=== PATIENT | male | born 1960 | race Caucasian/White ===

== ENCOUNTER 2018-06-04 13:21 | Emergency (ER) | payer OTHER, SELFPAY ==
[2018-06-04 13:30] VITALS: BP 139/90; PULSE 50; RESP 18; TEMP 36.3; O2SAT 99
--- NOTE | 2018-06-04 13:50 | ED.ABDPAIN ---
HPI - Abdominal Pain <[facility] - Last Filed: 06/04/18 16:59> General Chief Complaint: Abdominal Pain Stated Complaint: abdominal/lower back pain Time Seen by Provider: 06/04/18 13:49 Source: patient and family Mode of arrival: ambulatory Limitations: no limitations History of Present Illness HPI narrative: Patient presents with chief complaint of left lower quadrant pain and back pain that started last night. The pain gets worse sometimes. Pain was 8 to 9/[address] in here. He denies any fevers but complains of slight chills. He states it started last night. Denies any nausea, vomiting, diarrhea, constipation. The pain went away last night but returned after having a bowel movement. He states he has had GI issues in the past but nothing like this before. He denies any chest pain, shortness of breath, congestion, sore throat. He denies any urinary symptoms and denies dysuria, blood in his urine, urgency or frequency. Related Data Previous Rx's Medication Instructions Recorded oxycodone-acetaminophen [Percocet] 1 tab PO Q4-6H PRN #14 tab 06/04/18 tamsulosin [Flomax] 0.4 mg PO DAILY #7 cap 06/04/18 Allergies Allergy/AdvReac Type Severity Reaction Status Date / Time No Known Drug Allergies Allergy Verified 06/04/18 13:42 Review of Systems <Paulina Watkins [facility] - Last Filed: 06/04/18 16:59> Review of Systems GENERAL: Denies chills, fatigue, malaise, fever, sweats. HEENT: Denies sinus pain, ear pain, sore throat, difficulty swallowing, dizziness. RESPIRATORY: Denies dyspnea, cough, wheezing, hemoptysis, sputum. CARDIOVASCULAR: Denies chest pain, palpitations, orthopnea, edema, GASTROINTESTINAL: See HPI : See HPI. MUSCULOSKELETAL: denies weakness, joint pain, or bony pain SKIN: Denies rash, skin lesions, or other NEUROLOGIC: Denies weakness, headache, numbness, change in speech, confusion, seizures, incoordination. PSYCHIATRIC: No concerning psychosocial issues. 12 point review of systems is negative except for those stated above Exam <Paulina Watkins [facility] - Last Filed: 06/04/18 16:59> Narrative Exam Narrative: GENERAL: This is a well-nourished, well-developed patient, in no acute distress with at bedside HEAD: Atraumatic. Normocephalic. No temporal or scalp tenderness. EYES: Pupils equal round and reactive. Extraocular motions intact. No scleral icterus. No injection or drainage. ENT: Nose without bleeding, purulent drainage or septal hematoma. Throat without erythema, tonsillar hypertrophy or exudate. Uvula midline. Airway patent. NECK: Trachea midline. No JVD or lymphadenopathy. Supple, nontender, no meningeal signs. CARDIOVASCULAR: Regular rate and rhythm without murmurs, gallops, or rubs. RESPIRATORY: Clear to auscultation. Breath sounds equal bilaterally. No wheezes, rales, or rhonchi. GASTROINTESTINAL: Abdomen soft, nondistended. No hepato-splenomegaly, or palpable masses. Slight guarding noted left lower quadrant, right lower quadrant. No pain at McBurney's point, negative Fuentes sign. Active bowel sounds all 4 quadrants. EXTREMITIES: No clubbing, cyanosis, or edema. No joint tenderness, effusion, or edema noted. BACK: Nontender without deformity or crepitance. No flank tenderness. No CVA tenderness bilaterally. NEURO: AOx3. SKIN: No rash or erythema. Initial Vital Signs Initial Vital Signs: Vital Signs Temperature 97.3 F L 06/04/18 13:30 Pulse Rate 50 L 06/04/18 13:30 Respiratory Rate 18 06/04/18 13:30 Blood Pressure 139/90 06/04/18 13:30 Pulse Oximetry 99 06/04/18 13:30 <Saad Vines DO - Last Filed: 06/04/18 17:23> Initial Vital Signs Initial Vital Signs: Vital Signs Temperature 97.3 F L 06/04/18 13:30 Pulse Rate 50 L 06/04/18 13:30 Respiratory Rate 18 06/04/18 13:30 Blood Pressure 139/90 06/04/18 13:30 Pulse Oximetry 99 06/04/18 13:30 Course <BRIANNA DsouzaBC - Last Filed: 06/04/18 16:59> Additional Information: I checked on the patient several times her to stay. He repeatedly refused pain medication and nausea medication. Orders Ordered: ED Orders 06/04/18 14:03 CT abdomen pelvis w con Stat 06/04/18 14:05 Complete Blood Count AUTO DIFF Stat Comprehensive Metabolic Panel Stat Lipase Stat Partial Thromboplastin Time Stat Prothrombin Time INR Stat 06/04/18 15:15 Urine Microscopic Stat Discontinued Medications Sodium Chloride (Normal Saline 0.9%) 1,000 mls @ 1,000 mls/hr IV BOLUS ONE Stop: 06/04/18 17:03 Last Infusion: 06/04/18 17:17 Dose: 0 mls/hr Admin: 06/04/18 16:05 Dose: 1,000 mls/hr Ketorolac Tromethamine (Toradol) 30 mg IV NOW ONE Stop: 06/04/18 15:48 Last Admin: 06/04/18 15:49 Dose: 30 mg Vital Signs - 8 hr 06/04/18 13:30 06/04/18 14:57 06/04/18 16:20 Temperature 97.3 F L Pulse Rate 50 L 54 L 52 L Respiratory Rate 18 14 15 Blood Pressure 139/90 Blood Pressure [Right Arm] 123/74 124/79 Pulse Oximetry 99 98 98 06/04/18 17:17 Temperature Pulse Rate 48 L Respiratory Rate 12 Blood Pressure Blood Pressure [Right Arm] 114/72 Pulse Oximetry 95 <Saad Vines, DO - Last Filed: 06/04/18 17:23> Orders Ordered: ED Orders 06/04/18 14:03 CT abdomen pelvis w con Stat 06/04/18 14:05 Complete Blood Count AUTO DIFF Stat Comprehensive Metabolic Panel Stat Lipase Stat Partial Thromboplastin Time Stat Prothrombin Time INR Stat 06/04/18 15:15 Urine Microscopic Stat Discontinued Medications Sodium Chloride (Normal Saline 0.9%) 1,000 mls @ 1,000 mls/hr IV BOLUS ONE Stop: 06/04/18 17:03 Last Infusion: 06/04/18 17:17 Dose: 0 mls/hr Admin: 06/04/18 16:05 Dose: 1,000 mls/hr Ketorolac Tromethamine (Toradol) 30 mg IV NOW ONE Stop: 06/04/18 15:48 Last Admin: 06/04/18 15:49 Dose: 30 mg Vital Signs - 8 hr 06/04/18 13:30 06/04/18 14:57 06/04/18 16:20 Temperature 97.3 F L Pulse Rate 50 L 54 L 52 L Respiratory Rate 18 14 15 Blood Pressure 139/90 Blood Pressure [Right Arm] 123/74 124/79 Pulse Oximetry 99 98 98 06/04/18 17:17 Temperature Pulse Rate 48 L Respiratory Rate 12 Blood Pressure Blood Pressure [Right Arm] 114/72 Pulse Oximetry 95 MDM - Abdominal Pain <Paulina WatkinsJAYDEP-BC - Last Filed: 06/04/18 16:59> Differential Diagnosis Differential diagnosis: Likely abdominal pain, acute appendicitis, calculus of kidney, diverticulitis and gastroenteritis Lab Data Attestation: I reviewed the patient's lab results. Result diagrams: 06/04/18 14:05 06/04/18 14:05 Lab Results 06/04/18 06/04/18 06/04/18 Range/Units 14:05 14:05 14:05 WBC 8.9 (4.5-11.0) X10^3/uL RBC 4.65 (4.5-5.9) X10^6/uL Hgb 14.7 (13.5-17.5) g/dL Hct 42.9 (41-53) % MCV 92.4 (80-100) fL MCH 31.6 (26-34) PG MCHC 34.2 (30-36) % RDW 12.9 (11.6-14.8) % Plt Count 265 (150-400) X10^3/uL Neut % (Auto) 73.5 (50-75) % Lymph % (Auto) 18.3 L (25-40) % [place] % (Auto) 7.1 (3-14) % Eos % (Auto) 0.7 L (2-4) % Baso % (Auto) 0.4 (0-2) % Neut # (Auto) 6500 H (8912-0135) /uL PT 11.1 (10.1-12.7) SECONDS INR 1.0 (0.9-1.3) APTT 29 (26.4-36.2) SECONDS Sodium 141 (137-145) mmol/L Potassium 4.0 (3.4-5.1) mmol/L Chloride 105 (98-107) mmol/L Carbon Dioxide 29 (22-32) mmol/L BUN 15 (9-20) mg/dL Creatinine 1.00 (0.66-1.25) mg/dL Estimated GFR > 60.0 (>60) mL/min BUN/Creatinine Ratio 15.0 (6-22) Glucose 101 H (70-100) mg/dL Calcium 9.3 (8.4-10.2) mg/dL Total Bilirubin 0.8 (0.2-1.3) mg/dL AST 28 (17-59) IU/L ALT 31 (21-72) IU/L Alkaline Phosphatase 54 (38-126) U/L Total Protein 7.2 (6.3-8.2) g/dL Albumin 4.3 (3.5-5.0) g/dL Globulin 2.9 (1.7-4.1) g/dL Albumin/Globulin Ratio 1.5 (1.0-2.8) Lipase 125 (23-300) U/L Urine RBC (0-5/HPF) Urine WBC (0-5/HPF) Ur Squamous Epith Cells Amorphous Sediment Urine Bacteria (None) Ur Culture Indicated? Micro UA Comment 06/04/18 Range/Units 15:15 WBC (4.5-11.0) X10^3/uL RBC (4.5-5.9) X10^6/uL Hgb (13.5-17.5) g/dL Hct (41-53) % MCV (80-100) fL MCH (26-34) PG MCHC (30-36) % RDW (11.6-14.8) % Plt Count (150-400) X10^3/uL Neut % (Auto) (50-75) % Lymph % (Auto) (25-40) % [place] % (Auto) (3-14) % Eos % (Auto) (2-4) % Baso % (Auto) (0-2) % Neut # (Auto) (5720-2903) /uL PT (10.1-12.7) SECONDS INR (0.9-1.3) APTT (26.4-36.2) SECONDS Sodium (137-145) mmol/L Potassium (3.4-5.1) mmol/L Chloride (98-107) mmol/L Carbon Dioxide (22-32) mmol/L BUN (9-20) mg/dL Creatinine (0.66-1.25) mg/dL Estimated GFR (>60) mL/min BUN/Creatinine Ratio (6-22) Glucose (70-100) mg/dL Calcium (8.4-10.2) mg/dL Total Bilirubin (0.2-1.3) mg/dL AST (17-59) IU/L ALT (21-72) IU/L Alkaline Phosphatase (38-126) U/L Total Protein (6.3-8.2) g/dL Albumin (3.5-5.0) g/dL Globulin (1.7-4.1) g/dL Albumin/Globulin Ratio (1.0-2.8) Lipase (23-300) U/L Urine RBC 30-100/hpf H (0-5/HPF) Urine WBC 0-1/hpf (0-5/HPF) Ur Squamous Epith Cells 0-1 /hpf Amorphous Sediment 1+ Urine Bacteria None seen (None) Ur Culture Indicated? Cult not indicated Micro UA Comment Not Reportable Point of care testing: Urine Dip Bedside Urine Glucose Negative Bedside Urine Bilirubin - Negative Bedside Urine Ketone - Negative Urine Specific [place] 1.015 Bedside Urine Occult Blood +++ Bedside Urine pH 6.0 Bedside Urine Protein +/- 15 Bedside Urine Urobilinogen 0.2 Bedside Urine Nitrite - Negative Bedside Urine Leukocytes - Negative Esterase Imaging Data CT scan - abdomen: Radiologist's impression: [place] [address] CT Scan Report Signed Patient: Frankie Jama MR#: [id number] : 1960 Acct:[id number] Age/Sex: 57 / M Date of Service: 06/04/18 Loc: ED Accession Number: [id number] Procedure: CT abdomen pelvis w con Ordering Provider: Paulina Watkins- PROCEDURE: CT ABDOMEN PELVIS W CON INDICATIONS: LLQ abd pain, fevers, guarding on exam TECHNIQUE: After the administration of intravenous contrast, 5 mm thick sections acquired from the diaphragm to the symphysis. 5 mm coronal and sagittal reformats were acquired. For radiation dose reduction, the following was used: automated exposure control, adjustment of mA and/or kV according to patient size. COMPARISON: None. FINDINGS: Image quality: Excellent. ABDOMEN: Lung bases: Lung bases are clear. Heart size is normal. Solid organs: Liver is normal in size and enhancement. Gallbladder appears normal. Biliary system is non dilated. Pancreas enhances normally. Spleen is normal in size and enhancement. No adrenal nodules. Kidneys demonstrate normal size and enhancement, without hydronephrosis on the right but there is mild hydronephrosis on the left extending into the left renal pelvis and proximal ureter to the junction of the upper and middle thirds of the ureter where a 4 x 3 mm calculus is present, having an internal radiodensity measured at approximately 550 Hounsfield units.. Peritoneum and bowel: Bowel loops demonstrate normal wall thickness and caliber. No free fluid or air. Nodes and vessels: No retroperitoneal or mesenteric adenopathy by size criteria. Aorta and inferior vena cava are normal in size. Miscellaneous: No ventral hernias. PELVIS: Genitourinary: Bladder wall thickness is normal. Miscellaneous: No inguinal hernias or adenopathy. Bones: No suspicious bony lesions. No vertebral body compression fractures. IMPRESSION: 3 x 4 mm impacted stone within the junction of the proximal and middle left ureter causing mild left hydronephrosis and hydroureter to that level. This structure measures approximately 550 Hounsfield units, and no additional urinary tract stone is seen. Over the lower abdomen and pelvis no diverticulitis is found.. Dictated by: Evans Marrero M.D. on 06/04/2018 at 15:32 Approved by: Evans Marrero M.D. on 06/04/2018 at 15:36 MDM Narrative Medical decision making narrative: Patient present with chief complaint of abdominal pain and back pain. Thus basic lab work was obtained, which came back grossly normal. Given his abdominal exam was slight guarding, I did obtain a CT scan of his abdomen pelvis, which found a 3 x 4 mm calculus with mild hydronephrosis on the left side. He was given fluids, Toradol in the emergency department, and sent home with a urine strainer. I did give him a small prescription of pain medication given his diagnosis. I discussed at length return precautions and follow up with primary care in a few days. <Saad Vines, - Last Filed: 06/04/18 17:23> Lab Data Lab Results 06/04/18 06/04/18 06/04/18 Range/Units 14:05 14:05 14:05 WBC 8.9 (4.5-11.0) X10^3/uL RBC 4.65 (4.5-5.9) X10^6/uL Hgb 14.7 (13.5-17.5) g/dL Hct 42.9 (41-53) % MCV 92.4 (80-100) fL MCH 31.6 (26-34) PG MCHC 34.2 (30-36) % RDW 12.9 (11.6-14.8) % Plt Count 265 (150-400) X10^3/uL Neut % (Auto) 73.5 (50-75) % Lymph % (Auto) 18.3 L (25-40) % [place] % (Auto) 7.1 (3-14) % Eos % (Auto) 0.7 L (2-4) % Baso % (Auto) 0.4 (0-2) % Neut # (Auto) 6500 H (4569-7707) /uL PT 11.1 (10.1-12.7) SECONDS INR 1.0 (0.9-1.3) APTT 29 (26.4-36.2) SECONDS Sodium 141 (137-145) mmol/L Potassium 4.0 (3.4-5.1) mmol/L Chloride 105 (98-107) mmol/L Carbon Dioxide 29 (22-32) mmol/L BUN 15 (9-20) mg/dL Creatinine 1.00 (0.66-1.25) mg/dL Estimated GFR > 60.0 (>60) mL/min BUN/Creatinine Ratio 15.0 (6-22) Glucose 101 H (70-100) mg/dL Calcium 9.3 (8.4-10.2) mg/dL Total Bilirubin 0.8 (0.2-1.3) mg/dL AST 28 (17-59) IU/L ALT 31 (21-72) IU/L Alkaline Phosphatase 54 (38-126) U/L Total Protein 7.2 (6.3-8.2) g/dL Albumin 4.3 (3.5-5.0) g/dL Globulin 2.9 (1.7-4.1) g/dL Albumin/Globulin Ratio 1.5 (1.0-2.8) Lipase 125 (23-300) U/L Urine RBC (0-5/HPF) Urine WBC (0-5/HPF) Ur Squamous Epith Cells Amorphous Sediment Urine Bacteria (None) Ur Culture Indicated? Micro UA Comment 06/04/18 Range/Units 15:15 WBC (4.5-11.0) X10^3/uL RBC (4.5-5.9) X10^6/uL Hgb (13.5-17.5) g/dL Hct (41-53) % MCV (80-100) fL MCH (26-34) PG MCHC (30-36) % RDW (11.6-14.8) % Plt Count (150-400) X10^3/uL Neut % (Auto) (50-75) % Lymph % (Auto) (25-40) % [place] % (Auto) (3-14) % Eos % (Auto) (2-4) % Baso % (Auto) (0-2) % Neut # (Auto) (3034-7212) /uL PT (10.1-12.7) SECONDS INR (0.9-1.3) APTT (26.4-36.2) SECONDS Sodium (137-145) mmol/L Potassium (3.4-5.1) mmol/L Chloride (98-107) mmol/L Carbon Dioxide (22-32) mmol/L BUN (9-20) mg/dL Creatinine (0.66-1.25) mg/dL Estimated GFR (>60) mL/min BUN/Creatinine Ratio (6-22) Glucose (70-100) mg/dL Calcium (8.4-10.2) mg/dL Total Bilirubin (0.2-1.3) mg/dL AST (17-59) IU/L ALT (21-72) IU/L Alkaline Phosphatase (38-126) U/L Total Protein (6.3-8.2) g/dL Albumin (3.5-5.0) g/dL Globulin (1.7-4.1) g/dL Albumin/Globulin Ratio (1.0-2.8) Lipase (23-300) U/L Urine RBC 30-100/hpf H (0-5/HPF) Urine WBC 0-1/hpf (0-5/HPF) Ur Squamous Epith Cells 0-1 /hpf Amorphous Sediment 1+ Urine Bacteria None seen (None) Ur Culture Indicated? Cult not indicated Micro UA Comment Not Reportable Point of care testing: Urine Dip Bedside Urine Glucose Negative Bedside Urine Bilirubin - Negative Bedside Urine Ketone - Negative Urine Specific [place] 1.015 Bedside Urine Occult Blood +++ Bedside Urine pH 6.0 Bedside Urine Protein +/- 15 Bedside Urine Urobilinogen 0.2 Bedside Urine Nitrite - Negative Bedside Urine Leukocytes - Negative Esterase Discharge Plan Departure Patient Disposition: Home Clinical Impression: Kidney stone on left side Discharge Date/Time: 06/04/18 17:19 Interventions: ED Discharge Assessment Last Done: 06/04/18 17:18 Instructions: Kidney Stones (Alternative Therapy), Kidney Stones -- Adult, DI for Kidney Stones Activity Restrictions/Additional Instructions: Imaging today revealed that you have a kidney stone. Please push fluids, take pain medication as needed, and follow up with your primary care provider. Please strain your urine. You can start taking Flomax tonight. You have no signs of infection in your urine at this point, but please be evaluated if you start having pain on urination, fevers, any acute concerns. Prescriptions: New tamsulosin [Flomax] 0.4 mg capsule 0.4 mg PO DAILY Qty: 7 RF: 0 oxycodone-acetaminophen [Percocet] 5-325 mg tablet 1 tab PO Q4-6H PRN (Reason: pain) Qty: 14 RF: 0 Referrals: Saad Delgado MD [Primary Care Provider] - <Saad Vines DO - Last Filed: 06/04/18 17:23> Cosign ED Attending Mervatature Attestation: I was available for consultation during this patient's emergency department encounter
--- NOTE | 2018-06-04 14:03 | DI.CT.S_ITS ---
PROCEDURE: CT ABDOMEN PELVIS W CON INDICATIONS: LLQ abd pain, fevers, guarding on exam TECHNIQUE: After the administration of intravenous contrast, 5 mm thick sections acquired from the diaphragm to the symphysis. 5 mm coronal and sagittal reformats were acquired. For radiation dose reduction, the following was used: automated exposure control, adjustment of mA and/or kV according to patient size. COMPARISON: None. FINDINGS: Image quality: Excellent. ABDOMEN: Lung bases: Lung bases are clear. Heart size is normal. Solid organs: Liver is normal in size and enhancement. Gallbladder appears normal. Biliary system is non dilated. Pancreas enhances normally. Spleen is normal in size and enhancement. No adrenal nodules. Kidneys demonstrate normal size and enhancement, without hydronephrosis on the right but there is mild hydronephrosis on the left extending into the left renal pelvis and proximal ureter to the junction of the upper and middle thirds of the ureter where a 4 x 3 mm calculus is present, having an internal radiodensity measured at approximately 550 Hounsfield units.. Peritoneum and bowel: Bowel loops demonstrate normal wall thickness and caliber. No free fluid or air. Nodes and vessels: No retroperitoneal or mesenteric adenopathy by size criteria. Aorta and inferior vena cava are normal in size. Miscellaneous: No ventral hernias. PELVIS: Genitourinary: Bladder wall thickness is normal. Miscellaneous: No inguinal hernias or adenopathy. Bones: No suspicious bony lesions. No vertebral body compression fractures. IMPRESSION: 3 x 4 mm impacted stone within the junction of the proximal and middle left ureter causing mild left hydronephrosis and hydroureter to that level. This structure measures approximately 550 Hounsfield units, and no additional urinary tract stone is seen. Over the lower abdomen and pelvis no diverticulitis is found.. Dictated by: Evans Marrero M.D. on 06/04/2018 at 15:32 Approved by: Evans Marrero M.D. on 06/04/2018 at 15:36
[2018-06-04 14:19] LABS: Add Manual Diff / Slide Review NO; Basophils Percent Auto 0.4 % (0-2); Eosinophils Percent Auto 0.7 % (2-4); Hematocrit 42.9 % (41-53); Hemoglobin 14.7 g/dL (13.5-17.5); Lymphocytes Percent Auto 18.3 % (25-40); Mean Corpuscular HGB Conc 34.2 % (30-36); Mean Corpuscular Hemoglobin 31.6 PG (26-34); Mean Corpuscular Volume 92.4 fL (80-100); Monocytes Percent Auto 7.1 % (3-14); Neutrophils Absolute Auto 6500 /uL (3000-5900); Neutrophils Percent Auto 73.5 % (50-75); Platelet Count 265 X10^3/uL (150-400); Red Blood Cell Count 4.65 X10^6/uL (4.5-5.9); Red Cell Distribution Width 12.9 % (11.6-14.8); White Blood Cell Count 8.9 X10^3/uL (4.5-11.0)
[2018-06-04 14:28] LABS: Prothrombin Time 11.1 SECONDS (10.1-12.7)
[2018-06-04 14:30] LABS: Alanine Aminotransferase 31 IU/L (21-72); Albumin 4.3 g/dL (3.5-5.0); Albumin Globulin Ratio 1.5 (1.0-2.8); Alkaline Phosphatase 54 U/L (38-126); Aspartate Aminotransferase 28 IU/L (17-59); Bilirubin Total 0.8 mg/dL (0.2-1.3); Blood Urea Nitrogen 15 mg/dL (9-20); Calcium 9.3 mg/dL (8.4-10.2); Carbon Dioxide 29 mmol/L (22-32); Chloride 105 mmol/L (98-107); Estimated Glomerular Filt Rate > 60.0 mL/min (>60); Globulin 2.9 g/dL (1.7-4.1); Glucose 101 mg/dL (70-100); HEMOLYSIS 19 (0-50); Lipase 125 U/L (23-300); PTT Partial Thromboplastin Tim 29 SECONDS (26.4-36.2); Sodium 141 mmol/L (137-145); Total Protein 7.2 g/dL (6.3-8.2)
[2018-06-04 14:57] VITALS: BP 123/74; PULSE 54; RESP 14; O2SAT 98
[2018-06-04 15:27] LABS: Bacteria Urine None Seen
[2018-06-04 15:35] LABS: Amorphous Sediment Urine 1+; Culture Indicated Urine Cult Not Indicated; RBC Urine 30-100/HPF (0-5/HPF); Squamous Epithelial Cell Urine 0-1 /HPF; WBC Urine 0-1/HPF (0-5/HPF)
[2018-06-04] MEDS: KETOROLAC 60 MG/2 ML VIAL 30 MG IV (15:49)
[2018-06-04] MEDS: SODIUM CHLORIDE 0.9% 1,000 ML 1000 ML IV (16:05)
--- NOTE | 2018-06-04 16:09 | PC.NURSE ---
Provided pt with urine strainers. Instructed on use and Pt verbalizes understanding. Pt denies pain at this time.
--- NOTE | 2018-06-04 16:12 | ED_ITS ---
HPI - Abdominal Pain <[facility] - Last Filed: 06/04/18 16:59> General Chief Complaint: Abdominal Pain Stated Complaint: abdominal/lower back pain Time Seen by Provider: 06/04/18 13:49 Source: patient and family Mode of arrival: ambulatory Limitations: no limitations History of Present Illness HPI narrative: Patient presents with chief complaint of left lower quadrant pain and back pain that started last night. The pain gets worse sometimes. Pain was 8 to 9/[address] in here. He denies any fevers but complains of slight chills. He states it started last night. Denies any nausea, vomiting, diarrhea, constipation. The pain went away last night but returned after having a bowel movement. He states he has had GI issues in the past but nothing like this before. He denies any chest pain, shortness of breath, congestion, sore throat. He denies any urinary symptoms and denies dysuria, blood in his urine, urgency or frequency. Related Data Previous Rx's Medication Instructions Recorded oxycodone-acetaminophen [Percocet] 1 tab PO Q4-6H PRN #14 tab 06/04/18 tamsulosin [Flomax] 0.4 mg PO DAILY #7 cap 06/04/18 Allergies Allergy/AdvReac Type Severity Reaction Status Date / Time No Known Drug Allergies Allergy Verified 06/04/18 13:42 Review of Systems <Paulina Watkins [facility] - Last Filed: 06/04/18 16:59> Review of Systems GENERAL: Denies chills, fatigue, malaise, fever, sweats. HEENT: Denies sinus pain, ear pain, sore throat, difficulty swallowing, dizziness. RESPIRATORY: Denies dyspnea, cough, wheezing, hemoptysis, sputum. CARDIOVASCULAR: Denies chest pain, palpitations, orthopnea, edema, GASTROINTESTINAL: See HPI : See HPI. MUSCULOSKELETAL: denies weakness, joint pain, or bony pain SKIN: Denies rash, skin lesions, or other NEUROLOGIC: Denies weakness, headache, numbness, change in speech, confusion, seizures, incoordination. PSYCHIATRIC: No concerning psychosocial issues. 12 point review of systems is negative except for those stated above Exam <Paulina Watkins [facility] - Last Filed: 06/04/18 16:59> Narrative Exam Narrative: GENERAL: This is a well-nourished, well-developed patient, in no acute distress with at bedside HEAD: Atraumatic. Normocephalic. No temporal or scalp tenderness. EYES: Pupils equal round and reactive. Extraocular motions intact. No scleral icterus. No injection or drainage. ENT: Nose without bleeding, purulent drainage or septal hematoma. Throat without erythema, tonsillar hypertrophy or exudate. Uvula midline. Airway patent. NECK: Trachea midline. No JVD or lymphadenopathy. Supple, nontender, no meningeal signs. CARDIOVASCULAR: Regular rate and rhythm without murmurs, gallops, or rubs. RESPIRATORY: Clear to auscultation. Breath sounds equal bilaterally. No wheezes , rales, or rhonchi. GASTROINTESTINAL: Abdomen soft, nondistended. No hepato-splenomegaly, or palpable masses. Slight guarding noted left lower quadrant, right lower quadrant. No pain at McBurney's point, negative Fuentes sign. Active bowel sounds all 4 quadrants. EXTREMITIES: No clubbing, cyanosis, or edema. No joint tenderness, effusion, or edema noted. BACK: Nontender without deformity or crepitance. No flank tenderness. No CVA tenderness bilaterally. NEURO: AOx3. SKIN: No rash or erythema. Initial Vital Signs Initial Vital Signs: Vital Signs Temperature 97.3 F L 06/04/18 13:30 Pulse Rate 50 L 06/04/18 13:30 Respiratory Rate 18 06/04/18 13:30 Blood Pressure 139/90 06/04/18 13:30 Pulse Oximetry 99 06/04/18 13:30 <Saad Vines DO - Last Filed: 06/04/18 17:23> Initial Vital Signs Initial Vital Signs: Vital Signs Temperature 97.3 F L 06/04/18 13:30 Pulse Rate 50 L 06/04/18 13:30 Respiratory Rate 18 06/04/18 13:30 Blood Pressure 139/90 06/04/18 13:30 Pulse Oximetry 99 06/04/18 13:30 Course <BRIANNA DsouzaBC - Last Filed: 06/04/18 16:59> Additional Information: I checked on the patient several times her to stay. He repeatedly refused pain medication and nausea medication. Orders Ordered: ED Orders 06/04/18 14:03 CT abdomen pelvis w con Stat 06/04/18 14:05 Complete Blood Count AUTO DIFF Stat Comprehensive Metabolic Panel Stat Lipase Stat Partial Thromboplastin Time Stat Prothrombin Time INR Stat 06/04/18 15:15 Urine Microscopic Stat Discontinued Medications Sodium Chloride (Normal Saline 0.9%) 1,000 mls @ 1,000 mls/hr IV BOLUS ONE Stop: 06/04/18 17:03 Last Infusion: 06/04/18 17:17 Dose: 0 mls/hr Admin: 06/04/18 16:05 Dose: 1,000 mls/hr Ketorolac Tromethamine (Toradol) 30 mg IV NOW ONE Stop: 06/04/18 15:48 Last Admin: 06/04/18 15:49 Dose: 30 mg Vital Signs - 8 hr 06/04/18 13:30 06/04/18 14:57 06/04/18 16:20 Temperature 97.3 F L Pulse Rate 50 L 54 L 52 L Respiratory Rate 18 14 15 Blood Pressure 139/90 Blood Pressure [Right Arm] 123/74 124/79 Pulse Oximetry 99 98 98 06/04/18 17:17 Temperature Pulse Rate 48 L Respiratory Rate 12 Blood Pressure Blood Pressure [Right Arm] 114/72 Pulse Oximetry 95 <Saad Vines, DO - Last Filed: 06/04/18 17:23> Orders Ordered: ED Orders 06/04/18 14:03 CT abdomen pelvis w con Stat 06/04/18 14:05 Complete Blood Count AUTO DIFF Stat Comprehensive Metabolic Panel Stat Lipase Stat Partial Thromboplastin Time Stat Prothrombin Time INR Stat 06/04/18 15:15 Urine Microscopic Stat Discontinued Medications Sodium Chloride (Normal Saline 0.9%) 1,000 mls @ 1,000 mls/hr IV BOLUS ONE Stop: 06/04/18 17:03 Last Infusion: 06/04/18 17:17 Dose: 0 mls/hr Admin: 06/04/18 16:05 Dose: 1,000 mls/hr Ketorolac Tromethamine (Toradol) 30 mg IV NOW ONE Stop: 06/04/18 15:48 Last Admin: 06/04/18 15:49 Dose: 30 mg Vital Signs - 8 hr 06/04/18 13:30 06/04/18 14:57 06/04/18 16:20 Temperature 97.3 F L Pulse Rate 50 L 54 L 52 L Respiratory Rate 18 14 15 Blood Pressure 139/90 Blood Pressure [Right Arm] 123/74 124/79 Pulse Oximetry 99 98 98 06/04/18 17:17 Temperature Pulse Rate 48 L Respiratory Rate 12 Blood Pressure Blood Pressure [Right Arm] 114/72 Pulse Oximetry 95 MDM - Abdominal Pain <Paulina WatkinsJAYDEP-BC - Last Filed: 06/04/18 16:59> Differential Diagnosis Differential diagnosis: Likely abdominal pain, acute appendicitis, calculus of kidney, diverticulitis and gastroenteritis Lab Data Attestation: I reviewed the patient's lab results. Result diagrams: 06/04/18 14:05 06/04/18 14:05 Lab Results 06/04/18 06/04/18 06/04/18 Range/Units 14:05 14:05 14:05 WBC 8.9 (4.5-11.0) X10^3/uL RBC 4.65 (4.5-5.9) X10^6/uL Hgb 14.7 (13.5-17.5) g/dL Hct 42.9 (41-53) % MCV 92.4 (80-100) fL MCH 31.6 (26-34) PG MCHC 34.2 (30-36) % RDW 12.9 (11.6-14.8) % Plt Count 265 (150-400) X10^3/uL Neut % (Auto) 73.5 (50-75) % Lymph % (Auto) 18.3 L (25-40) % [place] % (Auto) 7.1 (3-14) % Eos % (Auto) 0.7 L (2-4) % Baso % (Auto) 0.4 (0-2) % Neut # (Auto) 6500 H (7533-9600) /uL PT 11.1 (10.1-12.7) SECONDS INR 1.0 (0.9-1.3) APTT 29 (26.4-36.2) SECONDS Sodium 141 (137-145) mmol/L Potassium 4.0 (3.4-5.1) mmol/L Chloride 105 (98-107) mmol/L Carbon Dioxide 29 (22-32) mmol/L BUN 15 (9-20) mg/dL Creatinine 1.00 (0.66-1.25) mg/dL Estimated GFR > 60.0 (>60) mL/min BUN/Creatinine Ratio 15.0 (6-22) Glucose 101 H (70-100) mg/dL Calcium 9.3 (8.4-10.2) mg/dL Total Bilirubin 0.8 (0.2-1.3) mg/dL AST 28 (17-59) IU/L ALT 31 (21-72) IU/L Alkaline Phosphatase 54 (38-126) U/L Total Protein 7.2 (6.3-8.2) g/dL Albumin 4.3 (3.5-5.0) g/dL Globulin 2.9 (1.7-4.1) g/dL Albumin/Globulin Ratio 1.5 (1.0-2.8) Lipase 125 (23-300) U/L Urine RBC (0-5/HPF) Urine WBC (0-5/HPF) Ur Squamous Epith Cells Amorphous Sediment Urine Bacteria (None) Ur Culture Indicated? Micro UA Comment 06/04/18 Range/Units 15:15 WBC (4.5-11.0) X10^3/uL RBC (4.5-5.9) X10^6/uL Hgb (13.5-17.5) g/dL Hct (41-53) % MCV (80-100) fL MCH (26-34) PG MCHC (30-36) % RDW (11.6-14.8) % Plt Count (150-400) X10^3/uL Neut % (Auto) (50-75) % Lymph % (Auto) (25-40) % [place] % (Auto) (3-14) % Eos % (Auto) (2-4) % Baso % (Auto) (0-2) % Neut # (Auto) (5808-0314) /uL PT (10.1-12.7) SECONDS INR (0.9-1.3) APTT (26.4-36.2) SECONDS Sodium (137-145) mmol/L Potassium (3.4-5.1) mmol/L Chloride (98-107) mmol/L Carbon Dioxide (22-32) mmol/L BUN (9-20) mg/dL Creatinine (0.66-1.25) mg/dL Estimated GFR (>60) mL/min BUN/Creatinine Ratio (6-22) Glucose (70-100) mg/dL Calcium (8.4-10.2) mg/dL Total Bilirubin (0.2-1.3) mg/dL AST (17-59) IU/L ALT (21-72) IU/L Alkaline Phosphatase (38-126) U/L Total Protein (6.3-8.2) g/dL Albumin (3.5-5.0) g/dL Globulin (1.7-4.1) g/dL Albumin/Globulin Ratio (1.0-2.8) Lipase (23-300) U/L Urine RBC 30-100/hpf H (0-5/HPF) Urine WBC 0-1/hpf (0-5/HPF) Ur Squamous Epith Cells 0-1 /hpf Amorphous Sediment 1+ Urine Bacteria None seen (None) Ur Culture Indicated? Cult not indicated Micro UA Comment Not Reportable Point of care testing: Urine Dip Bedside Urine Glucose Negative Bedside Urine Bilirubin - Negative Bedside Urine Ketone - Negative Urine Specific [place] 1.015 Bedside Urine Occult Blood +++ Bedside Urine pH 6.0 Bedside Urine Protein +/- 15 Bedside Urine Urobilinogen 0.2 Bedside Urine Nitrite - Negative Bedside Urine Leukocytes - Negative Esterase Imaging Data CT scan - abdomen: Radiologist's impression: [place] [address] CT Scan Report Signed Patient: Frankie Jama MR#: [id number] : 1960 Acct:[id number] Age/Sex: 57 / M Date of Service: 06/04/18 Loc: ED Accession Number: [id number] Procedure: CT abdomen pelvis w con Ordering Provider: Paulina Watkins- PROCEDURE: CT ABDOMEN PELVIS W CON INDICATIONS: LLQ abd pain, fevers, guarding on exam TECHNIQUE: After the administration of intravenous contrast, 5 mm thick sections acquired from the diaphragm to the symphysis. 5 mm coronal and sagittal reformats were acquired. For radiation dose reduction, the following was used: automated exposure control, adjustment of mA and/or kV according to patient size. COMPARISON: None. FINDINGS: Image quality: Excellent. ABDOMEN: Lung bases: Lung bases are clear. Heart size is normal. Solid organs: Liver is normal in size and enhancement. Gallbladder appears normal. Biliary system is non dilated. Pancreas enhances normally. Spleen is normal in size and enhancement. No adrenal nodules. Kidneys demonstrate normal size and enhancement, without hydronephrosis on the right but there is mild hydronephrosis on the left extending into the left renal pelvis and proximal ureter to the junction of the upper and middle thirds of the ureter where a 4 x 3 mm calculus is present, having an internal radiodensity measured at approximately 550 Hounsfield units.. Peritoneum and bowel: Bowel loops demonstrate normal wall thickness and caliber. No free fluid or air. Nodes and vessels: No retroperitoneal or mesenteric adenopathy by size criteria. Aorta and inferior vena cava are normal in size. Miscellaneous: No ventral hernias. PELVIS: Genitourinary: Bladder wall thickness is normal. Miscellaneous: No inguinal hernias or adenopathy. Bones: No suspicious bony lesions. No vertebral body compression fractures. IMPRESSION: 3 x 4 mm impacted stone within the junction of the proximal and middle left ureter causing mild left hydronephrosis and hydroureter to that level. This structure measures approximately 550 Hounsfield units, and no additional urinary tract stone is seen. Over the lower abdomen and pelvis no diverticulitis is found.. Dictated by: Evans Marrero M.D. on 06/04/2018 at 15:32 Approved by: Evans Marrero M.D. on 06/04/2018 at 15:36 MDM Narrative Medical decision making narrative: Patient present with chief complaint of abdominal pain and back pain. Thus basic lab work was obtained, which came back grossly normal. Given his abdominal exam was slight guarding, I did obtain a CT scan of his abdomen pelvis, which found a 3 x 4 mm calculus with mild hydronephrosis on the left side. He was given fluids, Toradol in the emergency department, and sent home with a urine strainer. I did give him a small prescription of pain medication given his diagnosis. I discussed at length return precautions and follow up with primary care in a few days. <Saad Vines, - Last Filed: 06/04/18 17:23> Lab Data Lab Results 06/04/18 06/04/18 06/04/18 Range/Units 14:05 14:05 14:05 WBC 8.9 (4.5-11.0) X10^3/uL RBC 4.65 (4.5-5.9) X10^6/uL Hgb 14.7 (13.5-17.5) g/dL Hct 42.9 (41-53) % MCV 92.4 (80-100) fL MCH 31.6 (26-34) PG MCHC 34.2 (30-36) % RDW 12.9 (11.6-14.8) % Plt Count 265 (150-400) X10^3/uL Neut % (Auto) 73.5 (50-75) % Lymph % (Auto) 18.3 L (25-40) % [place] % (Auto) 7.1 (3-14) % Eos % (Auto) 0.7 L (2-4) % Baso % (Auto) 0.4 (0-2) % Neut # (Auto) 6500 H (5295-8144) /uL PT 11.1 (10.1-12.7) SECONDS INR 1.0 (0.9-1.3) APTT 29 (26.4-36.2) SECONDS Sodium 141 (137-145) mmol/L Potassium 4.0 (3.4-5.1) mmol/L Chloride 105 (98-107) mmol/L Carbon Dioxide 29 (22-32) mmol/L BUN 15 (9-20) mg/dL Creatinine 1.00 (0.66-1.25) mg/dL Estimated GFR > 60.0 (>60) mL/min BUN/Creatinine Ratio 15.0 (6-22) Glucose 101 H (70-100) mg/dL Calcium 9.3 (8.4-10.2) mg/dL Total Bilirubin 0.8 (0.2-1.3) mg/dL AST 28 (17-59) IU/L ALT 31 (21-72) IU/L Alkaline Phosphatase 54 (38-126) U/L Total Protein 7.2 (6.3-8.2) g/dL Albumin 4.3 (3.5-5.0) g/dL Globulin 2.9 (1.7-4.1) g/dL Albumin/Globulin Ratio 1.5 (1.0-2.8) Lipase 125 (23-300) U/L Urine RBC (0-5/HPF) Urine WBC (0-5/HPF) Ur Squamous Epith Cells Amorphous Sediment Urine Bacteria (None) Ur Culture Indicated? Micro UA Comment 06/04/18 Range/Units 15:15 WBC (4.5-11.0) X10^3/uL RBC (4.5-5.9) X10^6/uL Hgb (13.5-17.5) g/dL Hct (41-53) % MCV (80-100) fL MCH (26-34) PG MCHC (30-36) % RDW (11.6-14.8) % Plt Count (150-400) X10^3/uL Neut % (Auto) (50-75) % Lymph % (Auto) (25-40) % [place] % (Auto) (3-14) % Eos % (Auto) (2-4) % Baso % (Auto) (0-2) % Neut # (Auto) (6776-2250) /uL PT (10.1-12.7) SECONDS INR (0.9-1.3) APTT (26.4-36.2) SECONDS Sodium (137-145) mmol/L Potassium (3.4-5.1) mmol/L Chloride (98-107) mmol/L Carbon Dioxide (22-32) mmol/L BUN (9-20) mg/dL Creatinine (0.66-1.25) mg/dL Estimated GFR (>60) mL/min BUN/Creatinine Ratio (6-22) Glucose (70-100) mg/dL Calcium (8.4-10.2) mg/dL Total Bilirubin (0.2-1.3) mg/dL AST (17-59) IU/L ALT (21-72) IU/L Alkaline Phosphatase (38-126) U/L Total Protein (6.3-8.2) g/dL Albumin (3.5-5.0) g/dL Globulin (1.7-4.1) g/dL Albumin/Globulin Ratio (1.0-2.8) Lipase (23-300) U/L Urine RBC 30-100/hpf H (0-5/HPF) Urine WBC 0-1/hpf (0-5/HPF) Ur Squamous Epith Cells 0-1 /hpf Amorphous Sediment 1+ Urine Bacteria None seen (None) Ur Culture Indicated? Cult not indicated Micro UA Comment Not Reportable Point of care testing: Urine Dip Bedside Urine Glucose Negative Bedside Urine Bilirubin - Negative Bedside Urine Ketone - Negative Urine Specific [place] 1.015 Bedside Urine Occult Blood +++ Bedside Urine pH 6.0 Bedside Urine Protein +/- 15 Bedside Urine Urobilinogen 0.2 Bedside Urine Nitrite - Negative Bedside Urine Leukocytes - Negative Esterase Discharge Plan Departure Patient Disposition: Home Clinical Impression: Kidney stone on left side Discharge Date/Time: 06/04/18 17:19 Interventions: ED Discharge Assessment Last Done: 06/04/18 17:18 Instructions: Kidney Stones (Alternative Therapy), Kidney Stones -- Adult, DI for Kidney Stones Activity Restrictions/Additional Instructions: Imaging today revealed that you have a kidney stone. Please push fluids, take pain medication as needed, and follow up with your primary care provider. Please strain your urine. You can start taking Flomax tonight. You have no signs of infection in your urine at this point, but please be evaluated if you start having pain on urination, fevers, any acute concerns. Prescriptions: New tamsulosin [Flomax] 0.4 mg capsule 0.4 mg PO DAILY Qty: 7 RF: 0 oxycodone-acetaminophen [Percocet] 5-325 mg tablet 1 tab PO Q4-6H PRN (Reason: pain) Qty: 14 RF: 0 Referrals: Saad Delgado MD [Primary Care Provider] - <Saad Vines DO - Last Filed: 06/04/18 17:23> Cosign ED Attending Merv[place] Attestation: I was available for consultation during this patient's emergency department encounter
[2018-06-04 16:20] VITALS: BP 124/79; PULSE 52; RESP 15; O2SAT 98
[2018-06-04 17:17] VITALS: BP 114/72; PULSE 48; RESP 12; O2SAT 95
== END 2018-06-04 17:19 | disposition home or self-care (01) ==
PROVIDERS: Emergency Provider Nurse Practitioner Family; Family Provider Family Medicine; PCP Family Medicine
DX: N20.0 Calculus of kidney (principal)
CPT/HCPCS: 36591; 74177; 80053; 81003; 81015; 83690; 85025; 85610; 85730; 96361; 96374; 99283; 99285; J1885; Q9967

== ENCOUNTER → 2019-01-18 07:33 | Outpatient (CLI) | payer OTHER, SELFPAY ==
[2019-01-18 08:41] LABS: Cholesterol 154 mg/dL (140-199); HDL Cholesterol 36 mg/dL (40-60); LDL Cholesterol Calculated 86 mg/dL (<100); Triglycerides 160 mg/dL (35-150)
== END ==
PROVIDERS: PCP Family Medicine; Visit Provider Internal Medicine Cardiovascular Disease
DX: Z82.49 Family history of ischemic heart disease and other diseases of the circulatory system (principal)
CPT/HCPCS: 36415; 80061

== ENCOUNTER → 2019-03-27 08:54 | Outpatient (CLI) | payer OTHER, SELFPAY ==
--- NOTE | 2019-03-27 | DI.RAD.S_ITS ---
PROCEDURE: XR KNEE RT 3V INDICATIONS: Rt. knee pain/swelling TECHNIQUE: 3 views of the knee were acquired. COMPARISON: [facility], , KNEE 3V RIGHT, 10/05/2011, 18:57. [facility], , KNEE 3V LEFT, 10/05/2011, 18:57. FINDINGS: Bones: No fractures or dislocations. No suspicious bony lesions. Scattered degenerative subchondral sclerosis and spurring. Soft tissues: No joint effusion. No suspicious soft tissue calcifications. IMPRESSION: Mild right knee joint degeneration, grossly unchanged since 10/05/11 Dictated by: Juwan Buchanan M.D. on 03/27/2019 at 13:27 Approved by: Juwan Buchanan M.D. on 03/27/2019 at 13:29
== END ==
PROVIDERS: PCP Family Medicine; Visit Provider Internal Medicine
DX: M25.561 Pain in right knee (principal); M17.11 Unilateral primary osteoarthritis, right knee
CPT/HCPCS: 73562

== ENCOUNTER 2019-11-15 02:10 | Emergency (ER) | payer OTHER, SELFPAY ==
[2019-11-15 02:20] VITALS: BP 155/85; PULSE 73; RESP 20; TEMP 37.1; O2SAT 99; BMI 26.4
--- NOTE | 2019-11-15 02:49 | ED_ITS ---
HPI - Chest Pain General Chief Complaint: Chest Pain Stated Complaint: heart issues/passed out Time Seen by Provider: 11/15/19 02:14 Source: patient Mode of arrival: Family Vehicle Limitations: no limitations History of Present Illness HPI narrative: 59-year-old male here for evaluation of syncopal episode in left-sided chest discomfort. Patient states that he went to bed last evening feeling fine. He woke up several hours prior to arrival here in the emergency department to go urinate. He stated that while he was urinating he became very lightheaded. [place] like the room was spinning. Did feel like his heart was going fast. He tried to get back into bed however passed out and fell prior to getting back in the bed. He states that he was back to normal can almost immediately afterwards. He did hit the left side of his face on the bed however no other injuries. He also states that now he has left-sided chest pain. He states that it is reproducible with palpation and deep breathing. Has had this pain on the left side off and on for several days now. Does not seem to be worse today as it was over the past couple days. Related Data Previous Rx's Medication Instructions Recorded oxycodone-acetaminophen [Percocet] 1 tab PO Q4-6H PRN #14 tab 06/04/18 tamsulosin [Flomax] 0.4 mg PO DAILY #7 cap 06/04/18 Allergies Allergy/AdvReac Type Severity Reaction Status Date / Time No Known Drug Allergies Allergy Verified 06/04/18 13:42 Review of Systems Constitutional Constitutional: Denies fever(s), Denies frequent falls and Denies headache(s) ENT Ears, Nose, Mouth, and Throat: Denies headache(s) Cardiovascular Cardiovascular: Reports chest pain, Reports syncope, Reports rapid heart rate, Denies edema, Denies palpitations, Denies dyspnea and Denies dyspnea on exertion Respiratory Respiratory: Denies dyspnea and Denies dyspnea on exertion Gastrointestinal Gastrointestinal: Denies abdominal pain, Denies nausea and Denies vomiting Musculoskeletal Musculoskeletal: Denies myalgias and Denies arthralgias Integumentary/Breasts Skin/Breast: Denies lesions and Denies rash Neurologic Neurologic: Denies behavioral changes, Reports syncope, Denies frequent falls and Denies headache(s) Psychiatric Psychiatric: Denies behavioral changes Endocrine Endocrine: Denies palpitations Hematologic/Lymphatic Hematologic/Lymphatic: Denies easy bleeding and Denies easy bruising Patient History Medical History Healthy adult (Acute) Social History Smoking Status: Never smoker Smoking Status: Never smoker alcohol intake frequency: 0-2 drinks per day Substance Use Type: does not use Exam Initial Vital Signs Initial Vital Signs: Vital Signs Temperature 98.7 F 11/15/19 02:20 Pulse Rate 73 11/15/19 02:20 Respiratory Rate 20 11/15/19 02:20 Blood Pressure 155/85 H 11/15/19 02:20 Pulse Oximetry 99 11/15/19 02:20 Const General: cooperative and comfortable HENMT Head: normal to inspection and normocephalic Resp Effort & Inspection: normal respiratory effort Auscultation: clear to auscultation bilaterally Cardio Rate: regular rate Rhythm: regular rhythm Pulses: radial pulses present GI Inspection: non-distended Palpation: soft and No firm Skin Lesions: no lesions Rashes: no rashes Neuro General: alert, awake and oriented x3 Cognition: normal cognition Speech: speech normal Extrem General: normal to inspection and capillary refill normal Psych Appearance: grossly normal and well kempt Scores HEART Score Heart Score history: Slightly Suspicious Heart Score EKG: Normal Heart Score Age: 45-64 years old Heart Score risk factors: No known risk factors Heart Score troponin: < or = to normal limit Heart Score Total: 1 Course Orders Ordered: ED Orders 11/15/19 02:15 EKG-12 Lead Stat 11/15/19 02:30 Basic Metabolic Panel Stat Complete Blood Count AUTO DIFF Stat Partial Thromboplastin Time Stat Prothrombin Time INR Stat Troponin I Stat 11/15/19 03:42 XR chest 1V Stat Vital Signs Vital signs: Vital Signs - 8 hr 11/15/19 02:20 11/15/19 03:30 Temperature 98.7 F Pulse Rate 54 L Pulse Rate [Left] 73 Respiratory Rate 20 17 Blood Pressure [Left Arm] 155/85 H 119/76 Pulse Oximetry 99 98 MDM - Chest Pain Lab Data Attestation: I reviewed the patient's lab results. Result diagrams: 11/15/19 02:30 11/15/19 02:30 Labs: Lab Results 11/15/19 11/15/19 11/15/19 Range/Units 02:30 02:30 02:30 WBC 7.0 (4.5-11.0) X10^3/uL RBC 4.87 (4.5-5.9) X10^6/uL Hgb 15.5 (13.5-17.5) g/dL Hct 44.6 (41-53) % MCV 91.5 (80-100) fL MCH 31.7 (26-34) PG MCHC 34.7 (30-36) % RDW 12.9 (11.6-14.8) % Plt Count 270 (150-400) X10^3/uL Neut % (Auto) 47.6 L (50-75) % Lymph % (Auto) 37.7 (25-40) % [place] % (Auto) 11.0 (3-14) % Eos % (Auto) 2.9 (2-4) % Baso % (Auto) 0.8 (0-2) % Neut # (Auto) 3300 (1630-2692) /uL Lymph # (Auto) 2600 (4632-9045) /uL [place] # (Auto) 800 (0-900) /uL Eos # (Auto) 200 (0-450) /uL Baso # (Auto) 100 (0-100) /uL PT 10.6 (10.1-12.7) SECONDS INR 0.9 (0.9-1.3) APTT 29 (26.4-36.2) SECONDS Sodium 141 (137-145) mmol/L Potassium 3.7 (3.4-5.1) mmol/L Chloride 105 (98-107) mmol/L Carbon Dioxide 28 (22-32) mmol/L BUN 20 (9-20) mg/dL Creatinine 1.00 (0.66-1.25) mg/dL Estimated GFR > 60.0 (>60) mL/min BUN/Creatinine Ratio 20.0 (6-22) Glucose 94 (70-100) mg/dL Calcium 9.3 (8.4-10.2) mg/dL Troponin I < 0.012 (0.01-0.034) ng/mL Imaging Data Chest x-ray: Attestation: I personally reviewed and interpreted this imaging study as follows: My Impression: No acute changes, no pneumothorax ECG Data Attestation: I personally reviewed and interpreted this ECG as follows: Prior ECG tracings: not available for review Interpretation: Sinus rhythm Ventricular rate is 65 Normal axis Normal QRS Normal QTC No ST T wave changes MDM Narrative Medical decision making narrative: Patient is a low risk heart score. Has a unremarkable EKG. Unremarkable labs. His symptoms do fit with micturition sync ope. He does not have a history of blood pressure issues. This does not sound like seizure activity. Physical exam is not consistent with CVA or TIA. We did discuss that this could potentially be a cardiac arrhythmia however has a normal QRS and normal QTC in an otherwise unremarkable EKG. Informed him he should talk with his primary doctor about the indications for a Holter monitor. He does have reproducible left-sided chest pain. I do feel that given his low risk heart score in his physical exam we could hold on further workup for this. Patient was given return precautions and follow-up instructions. He expressed understanding and agreement plan. Discharge Plan Departure Patient Disposition: Home Clinical Impression: Atypical chest pain Syncope Qualifiers: Syncope type: unspecified Qualified Code(s): R55 - Syncope and collapse Instructions: Fainting, DI for Atypical Chest Pain Activity Restrictions/Additional Instructions: Continue all of your medications as directed. I do recommend that you talk with your primary provider about further evaluation and treatment. Return to the emergency department for any new or worsening symptoms Prescriptions: No Action tamsulosin [Flomax] 0.4 mg capsule 0.4 mg PO DAILY Qty: 7 RF: 0 oxycodone-acetaminophen [Percocet] 5-325 mg tablet 1 tab PO Q4-6H PRN (Reason: pain) Qty: 14 RF: 0 Referrals: Saad Delgado MD [Primary Care Provider] -
[2019-11-15 02:50] LABS: Add Manual Diff / Slide Review NO; Basophils Absolute Auto 100 /uL (0-100); Basophils Percent Auto 0.8 % (0-2); Eosinophils Absolute Auto 200 /uL (0-450); Eosinophils Percent Auto 2.9 % (2-4); Hematocrit 44.6 % (41-53); Hemoglobin 15.5 g/dL (13.5-17.5); Lymphocytes Absolute Auto 2600 /uL (1100-4500); Lymphocytes Percent Auto 37.7 % (25-40); Mean Corpuscular HGB Conc 34.7 % (30-36); Mean Corpuscular Hemoglobin 31.7 PG (26-34); Mean Corpuscular Volume 91.5 fL (80-100); Monocytes Absolute Auto 800 /uL (0-900); Neutrophils Absolute Auto 3300 /uL (1500-7000); Neutrophils Percent Auto 47.6 % (50-75); Platelet Count 270 X10^3/uL (150-400); Red Blood Cell Count 4.87 X10^6/uL (4.5-5.9); Red Cell Distribution Width 12.9 % (11.6-14.8)
[2019-11-15 02:52] LABS: INR 0.9 (0.9-1.3); Prothrombin Time 10.6 SECONDS (10.1-12.7)
[2019-11-15 02:55] LABS: PTT Partial Thromboplastin Tim 29 SECONDS (26.4-36.2)
[2019-11-15 02:57] LABS: Blood Urea Nitrogen 20 mg/dL (9-20); Calcium 9.3 mg/dL (8.4-10.2); Carbon Dioxide 28 mmol/L (22-32); Chloride 105 mmol/L (98-107); Estimated Glomerular Filt Rate > 60.0 mL/min (>60); Glucose 94 mg/dL (70-100); HEMOLYSIS 31 (0-50); Potassium 3.7 mmol/L (3.4-5.1); Sodium 141 mmol/L (137-145)
[2019-11-15 03:09] LABS: Troponin I < 0.012 ng/mL (0.01-0.034)
[2019-11-15 03:30] VITALS: BP 119/76; PULSE 54; RESP 17; O2SAT 98
--- NOTE | 2019-11-15 03:42 | DI.RAD.S_ITS ---
PROCEDURE: XR CHEST 1V INDICATIONS: chest pain TECHNIQUE: One view of the chest was acquired. COMPARISON: [facility], CT, CT ABDOMEN PELVIS W CON, 06/04/2018, 14:53. FINDINGS: Surgical changes and devices: None. Lungs and pleura: The mild left hemidiaphragm elevation and left basilar atelectasis. No pleural effusions or pneumothorax. Mediastinum: Mediastinal contours appear normal. Heart size is normal. Bones and chest wall: No suspicious bony lesions. Overlying soft tissues appear unremarkable. IMPRESSION: Left basilar atelectasis. Dictated by: Laurel Batres M.D. on 11/15/2019 at 9:08 Approved by: Laurel Batres M.D. on 11/15/2019 at 9:09
--- NOTE | 2019-11-15 03:44 | PC.NURSE ---
Pt ambulating with steady gait and no complaints in hallway, aware.
[2019-11-15 04:21] VITALS: BP 121/85; PULSE 54; RESP 19
== END 2019-11-15 04:14 | disposition home or self-care (01) ==
PROVIDERS: Emergency Provider Emergency Medicine; PCP Family Medicine
DX: R07.89 Other chest pain (principal); R55 Syncope and collapse
CPT/HCPCS: 36415; 71045; 80048; 84484; 85025; 85610; 85730; 93005; 99284; 99285

== ENCOUNTER → 2021-03-04 09:17 | Outpatient (CLI) | payer OTHER, SELFPAY ==
[2021-03-04 13:41] LABS: COVID19 -Nasal RAPID Negative (Negative)
== END ==
PROVIDERS: Visit Provider Physician Assistant
DX: Z01.812 Encounter for preprocedural laboratory examination (principal); Z20.822 Contact with and (suspected) exposure to COVID-19
CPT/HCPCS: 87635

== ENCOUNTER 2021-03-06 13:24 | Day surgery (SDC) | payer OTHER, SELFPAY ==
--- NOTE | 2021-03-06 | PATH_ITS ---
[facility] Accession Number: [id number] . 01 Material submitted: . PART A: duodenum - THIRD PORTION OF DUODENUM PART B: gastrointestinal site - ANTRUM PART C: gastrointestinal site - FUNDUS PART D: gastrointestinal site - BODY PART E: esophagus, E-G Junction - 12 O'CLOCK GE JUNCTION PART F: esophagus, E-G Junction - 6 O'CLOCK GE JUNCTION PART G: esophagus, E-G Junction - 9 O'CLOCK GE JUNCTION PART H: esophagus, E-G Junction - 3 O'CLOCK GE JUNCTION . 01 Clinical history: . SDC . 02 Diagnosis: A. Duodenum, Third Portion, Biopsy: Small bowel mucosa with no diagnostic abnormality. Negative for active inflammation, features of sprue, dysplasia, or malignancy. . B. Antrum, Biopsies: Gastric antral mucosa with minimal chronic inflammation. Negative for Helicobacter organism by immunohistochemistry. Negative for intestinal metaplasia. Negative for dysplasia or malignancy. . C-D. Stomach, Fundus, Body, Biopsies: Gastric body mucosa with minimal chronic inflammation. No evidence of Helicobacter organisms on H/E stain. Negative for intestinal metaplasia. Negative for dysplasia or malignancy. . E. Gastroesophageal Junction, 12 o'clock, Biopsies: Squamocolumnar junctional mucosa with focal specialized intestinal metaplasia; please see comment. Negative for dysplasia or malignancy. . F. Gastroesophageal Junction, 6 o'clock, Biopsies: Squamous mucosa with reactive changes. Negative for fungal organisms on AB/PAS stain. No glandular mucosa present for evaluation. Negative for dysplasia or malignancy. . G-H. Gastroesophageal Junction, 9 o'clock, 3 o'clock, Biopsies: Proximal gastric-type mucosa with no diagnostic abnormality. Negative for specialized intestinal metaplasia, dysplasia or malignancy. [facility] 03/12/2021 1405 Local . 02 Comment: E. 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 . 02 Electronically signed: . Fei Roach MD, PhD, Pathologist NPI- [id number] . 01 Gross description: . Part A: THIRD PORTION OF DUODENUM: Received in formalin are 3 fragment(s) of robert, soft tissue measuring 0.1 x 0.1 x 0.1 cm to 0.3 x 0.2 x 0.2 cm submitted entirely in 1 cassette(s) Part B: ANTRUM: Received in formalin are 2 fragment(s) of robert, soft tissue measuring 0.1 x 0.1 x 0.1 cm to 0.4 x 0.2 x 0.2 cm submitted entirely in 1 cassette(s) Part C: FUNDUS: Received in formalin are 2 fragment(s) of robert, soft tissue measuring 0.2 x 0.2 x 0.1 cm to 0.3 x 0.3 x 0.2 cm submitted entirely in 1 cassette(s) Part D: BODY: Received in formalin are 2 fragment(s) of robert, soft tissue measuring 0.1 x 0.1 x 0.1 cm to 0.3 x 0.2 x 0.2 cm submitted entirely in 1 cassette(s) Part E: 12 O'CLOCK GE JUNCTION: Received in formalin is 1 fragment(s) of robert, soft tissue measuring 0.2 x 0.2 x 0.2 cm submitted entirely in 1 cassette(s) Part F: 6 O'CLOCK GE JUNCTION: Received in formalin is 1 fragment(s) of robert, soft tissue measuring 0.1 x 0.1 x 0.1 cm submitted entirely in 1 cassette(s) Part O'CLOCK GE JUNCTION: Received in formalin is 1 fragment(s) of robert, soft tissue measuring 0.3 x 0.2 x 0.2 cm submitted entirely in 1 cassette(s) Part H: 3 O'CLOCK GE JUNCTION: Received in formalin is 1 fragment(s) of robert, soft tissue measuring 0.4 x 0.2 x 0.2 cm submitted entirely in 1 cassette(s) /ZULEYKA 03/09/2021 1910 Local . 02 Microscopic: . B. An immunohistochemical stain was performed to evaluate for Helicobacter organisms and is negative. The control stain showed appropriate reactivity. . F. An AB/PAS stain is performed to evaluate for fungal organisms and is negative. A control stain shows appropriate reactivity. . . * This test was developed and its performance characteristics determined by [facility]. It has not been cleared or approved by the U.S. Food and Drug Administration. The FDA has determined that such clearance or approval is not necessary. This test is used for clinical purposes. It should not be regarded as investigational or for research. . 02 Pathologist provided ICD-10: K29.70, K22.70 . 02 CPT . 593735, 354901, 431762, 694564, 164553, 958648, 095781, 298082, D04809, 556615 Performed at: 01 [facility] [address] [address], [place], [place] [id number] MD Magnus Pepe MD Phone: [phone] Performed at: 02 [facility] [place] [address] [place] [id number] MD Radha Garcia MD Phone: [phone]
--- NOTE | 2021-03-06 12:21 | PM.HP.1 ---
History of Present Illness History of Present Illness Date Patient Seen: 03/06/21 Chief complaint: SDC Narrative: 60 Years Old Male seen today for consideration of a diagnostic EGD. History of longstanding GERD x 10 years. He has been taking omeprazole 20 mg by mouth qam, appropriately on an empty stomach, but heartburn is not relieved. Heartburn is worse when lying down. Denies nausea or vomiting. No neck fullness. No cough. Lifetime non-smoker. There's been no family history of esophageal cancer. Overall health issues have been stable, including no major cardiac events for at least 6 weeks. Past Medical History: ESOPHAGEAL REFLUX Low back pain Knee joint pain, right VERTIGO, BENIGN PAROXYSMAL, BILATERAL Kidney stone Diarrhea, chronic Joint pain IRRITABLE BOWEL SYNDROME HEADACHE, TENSION Past Surgical History: Vasectomy (1996) Tonsillectomy Colonoscopy x 4 Family History: Father: Heart Disease age 72 - Heart Disease, Alcohol, Stroke (age 61), [place] (age 57) Mother: Hypertension Siblings: Hypertension, neuropathy Paternal Grandfather - prostate cancer Maternal Grandfather - kidney cancer Paternal uncle - of heart failure (age 52) Social History: Marital Status: - Erica - Teacher Children: Eriberto Reyna Hannah 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 Patient History Medical History (Updated 11/30/19 @ 00:00 by ) Healthy adult Family & Social History Tobacco & Substance use: Smoking Status Never smoker alcohol intake frequency 0-2 drinks per day Substance Use Type does not use Meds Home Medications and Allergies Allergies Allergy/AdvReac Type Severity Reaction Status Date / Time No Known Drug Allergies Allergy Verified 03/06/21 13:52 Exam Narrative Exam Narrative: General: well developed, well nourished, in no acute distress, Head: normocephalic and atraumatic, Lungs: normal respiratory effort, clear bilaterally to auscultation, no wheezes rales or rhonchi. Heart: normal rate and regular rhythm, no murmurs, rubs, gallops, or clicks, Abdomen: abdomen soft and non-tender without masses, organomegaly, or abdominal wall hernias, bowel sounds positive. Skin: intact without suspicious lesions or rashes, Psych: alert and cooperative; normal mood and affect; normal attention span and concentration; cognition, remote and recent memory appear to be intact, Assessment & Plan Assessment & Plan narrative: 1. GERD Plan: EGD The nature and character of the procedure as well as anticipated results were discussed. The possibility of not completing the procedure was also discussed. Possible complications including aspiration pneumonia, bleeding, perforation and reaction to medications either for sedation or preparation and missed lesions were discussed. Questions were answered and proceeding to the EGD was elected. Informed consent signed. I sincerely appreciate the referral allowing me to participate in this patient's care. Please contact me with any questions or concerns.
--- NOTE | 2021-03-06 12:23 | P.OP.ENDO_ITS ---
Operative Date/Time/Diagnoses Date of procedure: 03/06/21 Procedure Notes SCOAP/Timeout: 2:46 p.m. Procedure in detail: ENDOSCOPIST: Brenda Zacarias MD Sedation RN: Justina Morrison RN Sedation start time: 2:47 p.m. Sedation end time: 3:09 p.m. PROCEDURE: EGD with biopsy REFERRING PROVIDER: Dr. Shipman INDICATIONS: 1. GERD MEDICATION: Incremental doses of Versed and fentanyl until an appropriate level of sedation was achieved. ASA Ratin DURATION OF PROCEDURE: 14 minutes. COMPLICATIONS: None. LIMITATIONS: None EXTENT OF PROCEDURE: Third portion of the Duodenum. PROCEDURE: The high-definition gastroduodenoscope was introduced into the post erior oropharynx under direct vision after Hurricaine spray, noted IV sedation, and proper informed consent. The esophagus was identified and intubated under direct visualization. The scope was quickly passed through the esophagus and into the fundus of the stomach. A clear fundal pool was aspirated. The scope was then advanced to the antrum and the pylorus was identified. The scope was passed through the pylorus into the second and third portions of the duodenum. No abnormalities were noted in the duodenum, duodenal bulb or pyloric channel. Random biopsy taken x2. The antrum had mild superficial hyperemesis, targeted biopsy taken x2. J maneuver was produced. No abnormalities were noted of the proximal body, fundus or cardia. Random biopsy taken x4. A moderate hiatal hernia was noted. Scope was broken out of the J maneuver and the remainder of the stomach was carefully inspected upon withdrawal and was normal. The stomach was carefully deflated of all air on withdrawal. The distal esophagus was carefully inspected and Z-line was noted to be irregular, 4 quadrant biopsies taken. Top of the gastric folds noted at 46 cm from the incisors; circumferential extent of the metaplasia was 42 cm from the incisors; maximal extent of the metaplasia was 42 cm from the incisors. The remainder of the esophagus was normal upon withdrawal. The larynx and vocal cords appeared to be unremarkable. IMPRESSION: 1. Gastritis, antrum 2. Endoscopically suspected esophageal mucosa, C4M4 3. Moderate hiatal hernia PLAN: 1. Follow-up in clinic status post pathology results. The possibility of missed lesion including a malignancy was discussed prior with the patient. Potential alarm symptoms have been discussed and should be reported by the patient immediately.
[2021-03-06 13:53] VITALS: BMI 26.4
[2021-03-06] MEDS: LACTATED RINGERS 1,000 ML 200 ML IV (14:04)
[2021-03-06 14:05] VITALS: BMI 26.4
[2021-03-06 15:12] VITALS: BP 129/79; PULSE 65; RESP 20; TEMP 36.3; O2SAT 96
[2021-03-06] MEDS: fentaNYL 250 MCG/5 ML INJ IV (15:12)
[2021-03-06] MEDS: MIDAZOLAM 5 MG/5 ML VIAL IV (15:13)
[2021-03-06] MEDS: LIDOCAINE 4% SOLN 50 ML 20 ML TOP (15:13)
[2021-03-06] MEDS: LIDOCAINE JELLY 2% 5 ML 1 APPLIC TOP (15:14)
[2021-03-06 15:22] VITALS: BP 125/85; PULSE 62; RESP 18; O2SAT 94
[2021-03-06 15:27] VITALS: BP 130/81; PULSE 62; RESP 18; TEMP 36.9; O2SAT 94
[2021-03-06 15:49] VITALS: BP 120/82; PULSE 52; RESP 13; TEMP 36.3; O2SAT 95
== END 2021-03-06 16:06 | disposition home or self-care (01) ==
PROVIDERS: PCP Family Medicine; Referring Provider Student in an Organized Health Care Education/Training Program; Visit Provider Student in an Organized Health Care Education/Training Program
PROC: 0DJ08ZZ Inspection of Upper Intestinal Tract, Via Natural or Artificial Opening Endoscopic (ICD-10-PCS; CPT 43235; principal; 2021-03-06 14:30)
DX: K29.50 Unspecified chronic gastritis without bleeding (principal); K21.9 Gastro-esophageal reflux disease without esophagitis; K44.9 Diaphragmatic hernia without obstruction or gangrene
CPT/HCPCS: 43239; J2250; J3010

== ENCOUNTER → 2021-06-24 08:08 | Outpatient (CLI) | payer OTHER, SELFPAY ==
[2021-06-24 13:31] LABS: COVID19 -Nasal RAPID Negative (Negative)
== END ==
PROVIDERS: PCP Family Medicine; Visit Provider Physician Assistant
DX: Z20.822 Contact with and (suspected) exposure to COVID-19 (principal)
CPT/HCPCS: 87635

== ENCOUNTER 2021-06-26 12:01 | Day surgery (SDC) | payer OTHER, SELFPAY ==
--- NOTE | 2021-06-26 | PATH_ITS ---
[facility] Accession Number: [id number] . 01 Material submitted: . PART A: duodenum - DUODENUM PART B: stomach - ANTRUM PART C: stomach - BODY PART D: stomach - FUNDUS PART E: esophagus, E-G Junction - GE JUNCTION 6 O'CLOCK PART F: esophagus, E-G Junction - GE JUNCTION 12 O'CLOCK PART G: esophagus, E-G Junction - GE JUNCTION 9 O'CLOCK PART H: esophagus, E-G Junction - GE JUNCTION 3 O'CLOCK PART I: esophagus - DISTAL ESOPHAGHUS 38CM . 02 Diagnosis: A. Duodenum, Biopsy: Duodenal mucosa with no diagnostic abnormality. Negative for active inflammation, features of sprue, dysplasia, or malignancy. . B. Antrum, Biopsy: Gastric antral mucosa with mild chronic inflammation. Negative for Helicobacter organisms by immunohistochemistry. Negative for intestinal metaplasia. Negative for dysplasia or malignancy. . C. Body, Biopsy: Gastric body mucosa with no diagnostic abnormality. Negative for Helicobacter organisms by immunohistochemistry. Negative for intestinal metaplasia. Negative for dysplasia or malignancy. . D. Fundus, Biopsy: Gastric body mucosa with no diagnostic abnormality. No evidence of Helicobacter organisms on H/E stain. Negative for intestinal metaplasia. Negative for dysplasia and malignancy. . E. Gastroesophageal Junction, 6 o'clock, Biopsy: Squamocolumnar junctional mucosa with focal specialized intestinal metaplasia, consistent with Espinoza's esophagus. Negative for dysplasia and malignancy. . F. Gastroesophageal Junction, 12 o'clock, Biopsy: Squamous mucosa with no diagnostic abnormality. No glandular mucosa present for evaluation. Negative for dysplasia or malignancy. . G. Gastroesophageal Junction, 9 o'clock, Biopsy: Proximal gastric type mucosa with mild chronic inflammation. Negative for specialized intestinal metaplasia on AB/PAS stain. Negative for dysplasia or malignancy. . H. Gastroesophageal Junction, 3 o'clock, Biopsy: Squamocolumnar junctional mucosa with mild chronic inflammation. Negative for specialized intestinal metaplasia, dysplasia or malignancy. . I. Distal Esophagus, 38 cm, Biopsy: Squamous epithelium with no diagnostic abnormality. Intraepithelial eosinophils are not increased. Negative for dysplasia and malignancy [facility] 06/30/2021 1718 Local . 02 Electronically signed: . Fei Roach MD, PhD, Pathologist NPI- [id number] . 01 Gross description: . Part A: DUODENUM: Received in formalin is 1 fragment(s) of robert, soft tissue measuring 0.5 x 0.3 x 0.2 cm submitted entirely in 1 cassette(s) Part B: ANTRUM: Received in formalin are 2 fragment(s) of robert, soft tissue measuring 0.4 x 0.3 x 0.1 cm to 0.3 x 0.3 x 0.2 cm submitted entirely in 1 cassette(s) Part C: BODY: Received in formalin is 1 fragment(s) of robert, soft tissue measuring 0.3 x 0.3 x 0.3 cm submitted entirely in 1 cassette(s) Part D: FUNDUS: Received in formalin are 2 fragment(s) of robert, soft tissue measuring 0.3 x 0.3 x 0.2 cm to 0.2 x 0.2 x 0.2 cm submitted entirely in 1 cassette(s) Part E: GE JUNCTION 6 O'CLOCK: Received in formalin are 2 fragment(s) of robert, soft tissue measuring 0.3 x 0.2 x 0.1 cm to 0.3 x 0.1 x 0.1 cm submitted entirely in 1 cassette(s) Part F: GE JUNCTION 12 O'CLOCK: Received in formalin is 1 fragment(s) of robert, soft tissue measuring 0.3 x 0.3 x 0.2 cm submitted entirely in 1 cassette(s) Part G: GE JUNCTION 9 O'CLOCK: Received in formalin is 1 fragment(s) of robert, soft tissue measuring 0.1 x 0.1 x 0.1 cm submitted entirely in 1 cassette(s) Part H: GE JUNCTION 3 O'CLOCK: Received in formalin is 1 fragment(s) of robert, soft tissue measuring 0.3 x 0.3 x 0.1 cm submitted entirely in 1 cassette(s) Part I: DISTAL ESOPHAGHUS 38CM: Received in formalin is 1 fragment(s) of robert, soft tissue measuring 0.2 x 0.2 x 0.1 cm submitted entirely in 1 cassette(s) /QBJ 06/27/2021 48 Local . 02 Microscopic: . B. An immunohistochemical stain was performed to evaluate for Helicobacter organisms and is negative. The control stain showed appropriate reactivity. . C. An immunohistochemical stain was performed to evaluate for Helicobacter organisms and is negative. The control stain showed appropriate reactivity. . G. An AB/PAS stain is performed to evaluate for specialized intestinal metaplasia and is negative for goblet cells. The control stains show appropriate reactivity. . * This test was developed and its performance characteristics determined by [facility]. It has not been cleared or approved by the U.S. Food and Drug Administration. The FDA has determined that such clearance or approval is not necessary. This test is used for clinical purposes. It should not be regarded as investigational or for research. . 02 Pathologist provided ICD-10: K22.70, K29.70 . 02 CPT . 110931, 262639, 472043, 661557, 660409, 270051, 256126, 752288, 145344, R72221, 609842 Performed at: 01 [facility] [address] [place] [address], [place], [place] [id number] MD Magnus Pepe MD Phone: [phone] Performed at: 02 [facility] [address] [place], [place] [id number] MD Radha Garcia MD Phone: [phone]
--- NOTE | 2021-06-26 11:54 | P.HP_ITS ---
History of Present Illness History of Present Illness Date Patient Seen: 06/26/21 Chief complaint: SDC Narrative: 60 Years Old Male seen today for surveillance EGD. EGD on 03/06/2021 showed rare junctional mucosa with focal specialized intestinal metaplasia consistent with Espinoza's esophagus at the 12 o'clock. biopsy at the GE junction. There was also a moderate hiatal hernia and some minimal chronic gastritis in the antrum, body, and fundus that was negative for H pylori, metap lasia, dysplasia, or malignancy. Patient's long-standing 20 mg omeprazole was switched to 40 mg p.o. b.i.d. and he has been on that for 3 months, now asymptomatic. History of longstanding GERD x 10 years. Denies nausea or vomiting. No neck fullness. No cough. Lifetime non-smoker. There's been no family history of esophageal cancer. Overall health issues have been stable, including no major cardiac events for at least 6 weeks. Past Medical History: ESOPHAGEAL REFLUX Espinoza's esophagus Low back pain Knee joint pain, right VERTIGO, BENIGN PAROXYSMAL, BILATERAL Kidney stone Diarrhea, chronic Joint pain IRRITABLE BOWEL SYNDROME HEADACHE, TENSION Past Surgical History: Vasectomy (1996) Tonsillectomy Colonoscopy x 4 Family History: Father: Heart Disease age 72 - Heart Disease, Alcohol, Stroke (age 61), [place] (age 57) Mother: Hypertension Siblings: Hypertension, neuropathy Paternal Grandfather - prostate cancer Maternal Grandfather - kidney cancer Paternal uncle - of heart failure (age 52) Social History: Marital Status: - Erica - Teacher Children: Eriberto Reyna Hannah 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 Exam Narrative Exam Narrative: General: well developed, well nourished, in no acute distress, Head: normocephalic and atraumatic, Lungs: normal respiratory effort, clear bilaterally to auscultation, no wheezes rales or rhonchi. Heart: normal rate and regular rhythm, no murmurs, rubs, gallops, or clicks, Abdomen: abdomen soft and non-tender without masses, organomegaly, or abdominal wall hernias, bowel sounds positive. Skin: intact without suspicious lesions or rashes, Psych: alert and cooperative; normal mood and affect; normal attention span and concentration; cognition, remote and recent memory appear to be intact, Assessment & Plan Assessment & Plan narrative: 1. Espinoza's esophagus 2. GERD 3. Hiatal hernia, moderate Plan for surveillance EGD with biopsies every 1 cm. The nature and character of the procedure as well as anticipated results were discussed. The possibility of not completing the procedure was also discussed. Possible complications including aspiration pneumonia, bleeding, perforation and reaction to medications either for sedation or preparation and missed lesions were discussed. Questions were answered and proceeding to the EGD was elected. Informed consent signed. I sincerely appreciate the referral allowing me to participate in this patient's care. Please contact me with any questions or concerns. Time Spent With Patient Critical Care time: I spent a total of [] minutes of critical care time on this patient's care today; this time is exclusive of procedural time.
--- NOTE | 2021-06-26 12:03 | P.OP.EGD&C_ITS ---
Operative Date/Time/Diagnoses Date of procedure: 06/26/21 Procedure Notes SCOAP/Timeout: 1:08 p.m. Procedure in detail: ENDOSCOPIST: Brenda Zacarias MD Sedation RN: Codi Colbert RN Sedation start time: 1:09 p.m. Sedation end time: 1:28 p.m. PROCEDURE: EGD with biopsy REFERRING PROVIDER: Dr. Shipman INDICATIONS: 1. Espinoza's esophagus 2. GERD 3. Hiatal hernia, moderate MEDICATION: Incremental doses of Versed and fentanyl until an appropriate level of sedation was achieved. ASA Ratin DURATION OF PROCEDURE: 15 minutes. COMPLICATIONS: None. LIMITATIONS: None EXTENT OF PROCEDURE: Third portion of the Duodenum. PROCEDURE: The high-definition gastroduodenoscope was introduced into the posterior oropharynx under direct vision after Hurricaine spray, noted IV sedation, and proper informed consent. The esophagus was identified and int ubated under direct visualization. The scope was quickly passed through the esophagus and into the fundus of the stomach. A clear fundal pool was aspirated. The scope was then advanced to the antrum and the pylorus was identified. The scope was passed through the pylorus into the second and third portions of the duodenum. No abnormalities were noted in the duodenum, duodenal bulb or pyloric channel. Random biopsies taken x2. The antrum had mild superficial erythema, targeted biopsy taken x2. J maneuver was produced. No abnormalities were noted of the proximal body, fundus or cardia, random biopsy taken x2. A moderate- sized hiatal hernia was noted. Scope was broken out of the J maneuver and the remainder of the stomach was carefully inspected upon withdrawal and was normal. The stomach was carefully deflated of all air on withdrawal. The distal esophagus was carefully inspected and Z-line was noted to be irregular, 4 quadrant biopsies taken. Top of the gastric folds noted at 47 cm from the incisors; circumferential extent of the metaplasia was 48 cm from the incisors; maximal extent of the metaplasia was 48 cm from the incisors. A proximal biopsy to the GE junction was taken, 1 cm from the junction. The remainder of the esophagus was normal upon withdrawal. The larynx and vocal cords appeared to be unremarkable. IMPRESSION: 1. Antritis 2. Endoscopically suspected esophageal mucosa, C1M1 3. Moderate hiatal hernia PLAN: 1. Follow-up in clinic status post pathology results. The possibility of missed lesion including a malignancy was discussed prior with the patient. Potential alarm symptoms have been discussed and should be reported by the patient immediately.
[2021-06-26 12:12] VITALS: BP 133/82; PULSE 43; RESP 16; TEMP 36.4; O2SAT 100; BMI 28.1
[2021-06-26] MEDS: LACTATED RINGERS 1,000 ML 200 ML IV (12:32)
[2021-06-26 13:31] VITALS: BP 123/81; PULSE 52; RESP 14; TEMP 36.6; O2SAT 96
[2021-06-26] MEDS: fentaNYL 250 MCG/5 ML INJ IV (13:32)
[2021-06-26] MEDS: MIDAZOLAM 5 MG/5 ML VIAL IV (13:33)
[2021-06-26] MEDS: LIDOCAINE 4% SOLN 50 ML 20 ML TOP (13:33)
[2021-06-26] MEDS: LIDOCAINE JELLY 2% 5 ML 1 APPLIC TOP (13:34)
[2021-06-26] MEDS: TETRACAINE/BENZOCAINE/BUTAMBEN (CETACAINE) BOTTLE 1 SPRAY TOP (13:34)
[2021-06-26 13:36] VITALS: BP 110/82; PULSE 52; RESP 14; O2SAT 97
[2021-06-26 13:42] VITALS: BP 114/71; PULSE 48; RESP 14; O2SAT 95
--- NOTE | 2021-06-26 13:43 | SUR.PHASEI ---
surgeon to bedside. discussed procedure with patient. questions invited and answered. states understanding. pictures and documents printed and sent home with patient.
[2021-06-26 13:49] VITALS: BP 114/71; PULSE 49; RESP 16; TEMP 36.6; O2SAT 98
[2021-06-26 14:42] VITALS: BP 104/69; PULSE 44; RESP 14; TEMP 37.2; O2SAT 98
== END 2021-06-26 14:50 | disposition home or self-care (01) ==
PROVIDERS: PCP Family Medicine; Referring Provider Student in an Organized Health Care Education/Training Program; Visit Provider Student in an Organized Health Care Education/Training Program
PROC: 0DJ08ZZ Inspection of Upper Intestinal Tract, Via Natural or Artificial Opening Endoscopic (ICD-10-PCS; CPT 43235; principal; 2021-06-26 13:00)
DX: K22.70 Barrett's esophagus without dysplasia (principal); K44.9 Diaphragmatic hernia without obstruction or gangrene; K21.9 Gastro-esophageal reflux disease without esophagitis; K29.50 Unspecified chronic gastritis without bleeding
CPT/HCPCS: 43239; J2250; J3010

== ENCOUNTER → 2021-07-04 15:14 | Outpatient (CLI) | payer OTHER, SELFPAY ==
--- NOTE | 2021-07-04 15:16 | DI.RAD.S_ITS ---
PROCEDURE: XR HIP W PEL IF DONE RT 2V INDICATIONS: R hip pain, post fall on buttocks TECHNIQUE: AP pelvis with lateral view(s) of the right hip(s). COMPARISON: [facility], CT, CT ABDOMEN PELVIS W CON, 06/04/2018, 14:53. FINDINGS: Bones: No fractures or dislocations. Pelvic ring appears intact. No suspicious bony lesions. Age-appropriate bony degenerative changes are seen. Soft tissues: The visualized bowel gas pattern is normal. No suspicious soft tissue calcifications. IMPRESSION: Unremarkable plain film study for age, without a displaced fracture seen. Dictated by: Senthil Reynolds M.D. on 07/04/2021 at 14:42 Approved by: Senthil Reynolds M.D. on 07/04/2021 at 14:43
== END ==
PROVIDERS: PCP Family Medicine; Referring Provider Nurse Practitioner; Visit Provider Nurse Practitioner
DX: M25.551 Pain in right hip (principal)
CPT/HCPCS: 73502

== ENCOUNTER → 2021-07-07 15:43 | Outpatient (CLI) | payer OTHER, SELFPAY ==
--- NOTE | 2021-07-07 | DI.RAD.S_ITS ---
PROCEDURE: XR LUMBAR SPINE 2-3V INDICATIONS: LUMBAR RADICULOPATHY TECHNIQUE: 3 views of the lumbar spine were acquired. COMPARISON: [facility], CT, CT ABDOMEN PELVIS W CON, 06/04/2018, 14:53. FINDINGS: Bones: 5 [id number] vertebrae are present. Trace multilevel retrolisthesis. Multilevel disc degeneration, most notably and moderate at the L5-S1 level. Mild L4-L5 and L5-S1 facet joint arthropathy. No vertebral body compression fractures. No suspicious bony lesions. Soft tissues: Overlying bowel gas pattern is normal. No suspicious soft tissue calcifications. Chronic right flank calcification again noted. IMPRESSION: Multilevel spondylosis. Dictated by: Cipriano Martinez [facility] Interpreted: Sally Wagner MD on 07/07/2021 at 17:01 Transcribed by: ZACH on 07/07/2021 at 17:02 Approved by: Sally Wagner M.D. on 07/07/2021 at 17:03
== END ==
PROVIDERS: PCP Family Medicine; Referring Provider Family Medicine; Visit Provider Family Medicine
DX: M47.26 Other spondylosis with radiculopathy, lumbar region; M47.27 Other spondylosis with radiculopathy, lumbosacral region
CPT/HCPCS: 72100

== ENCOUNTER → 2025-08-16 10:11 | Outpatient (CLI) | payer OTHER, SELFPAY ==
--- NOTE | 2025-08-16 10:14 | DI.RAD.S_ITS ---
PROCEDURE: XR KNEE RT 3V INDICATIONS: Pain in right knee TECHNIQUE: 3 views of the knee were acquired. COMPARISON: [facility], , XR KNEE RT 3V, 03/27/2019, 9:00. FINDINGS: Bones: No fractures or dislocations. No suspicious bony lesions. Mild degenerative changes, most pronounced within the patellofemoral compartment. Soft tissues: No joint effusion. No suspicious soft tissue calcifications. IMPRESSION: Mild degenerative changes. No acute osseous abnormalities. Dictated by: Gavino Stephens M.D. on 08/17/2025 at 13:49 Approved by: Gavino Stephens M.D. on 08/17/2025 at 13:50
== END ==
LOC: RAD 10:13
PROVIDERS: PCP Family Medicine; Referring Provider Family Medicine; Visit Provider Family Medicine
DX: M25.561 Pain in right knee (principal)
CPT/HCPCS: 73562

== ENCOUNTER → 2025-09-09 13:20 | Outpatient (CLI) | payer OTHER, SELFPAY ==
--- NOTE | 2025-09-09 13:21 | DI.MRI.S_ITS ---
PROCEDURE: MR KNEE RT WO CON INDICATIONS: Pain in right knee TECHNIQUE: Noncontrast sagittal PD fast spin echo and T2 fast spin echo with fat saturation, sagittal 3-D FLASH with fat saturation; coronal T1 spin echo and PD fast spin echo with fat saturation, and axial PD fast spin echo with fat saturation through the knee. COMPARISON: None. FINDINGS: Image quality: Excellent. Menisci: There is suggestion of horizontal oblique tear involving posterior horn of medial meniscus extending to superior articulating surface series 11, image 27. The lateral meniscus is intact. Cruciate ligaments: The anterior cruciate ligament appears thickened. The posterior cruciate ligament is intact. Medial structures: The medial collateral ligament appears mildly thickened with surrounding soft tissue edema. Visualized portions of the pes anserinus tendons appear normal. No abnormal bursal fluid. Lateral structures: The lateral collateral ligament, long and short heads of the biceps femoris tendon appear intact. The popliteus tendon appears normal. Iliotibial band appears normal. Anterior structures: The quadriceps and patellar tendons appear intact. Patellar alignment is normal. . 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 Joint space: There is small knee joint fluid. There is a Amaya's cyst measures 2.5 x 2.5 x 5.2 cm in size. Normal appearing synovial plicae are incidentally noted. IMPRESSION: 1. Horizontal oblique tear involving posterior horn of medial meniscus extending to superior articulating surface. No lateral meniscal tear. 2. Low-grade ACL sprain. No ACL rupture. The PCL is intact. 3. Low-grade MCL sprain. 4. 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 No fracture or dislocation. Small joint effusion and a Amaya's cyst as above. No loose bodies. Dictated by: Giorgio Stafford M.D. on 09/09/2025 at 15:46 Approved by: Giorgio Stafford M.D. on 09/09/2025 at 15:55
== END ==
LOC: MRI 13:20
PROVIDERS: PCP Family Medicine; Referring Provider Family Medicine; Visit Provider Family Medicine
DX: S83.241A Other tear of medial meniscus, current injury, right knee, initial encounter (principal); S83.511A Sprain of anterior cruciate ligament of right knee, initial encounter; S83.411A Sprain of medial collateral ligament of right knee, initial encounter; M25.561 Pain in right knee; M17.11 Unilateral primary osteoarthritis, right knee; M71.21 Synovial cyst of popliteal space [Baker], right knee; M22.41 Chondromalacia patellae, right knee; M25.461 Effusion, right knee
CPT/HCPCS: 73721